=== PATIENT | male | born 1980 | race African-American/Black ===

== ENCOUNTER → 2018-02-25 | Outpatient (CLI) | payer BC ==
[2018-02-25 15:31] LABS: BILIRUBIN,URINE NEGATIVE (NEG); CLARITY,URINE CLEAR; COLOR,URINE YELLOW; NITRITE,URINE NEGATIVE (NEG); PROTEIN,URINE NEGATIVE (NEG-TRACE)
[2018-02-25 15:43] LABS: BACTERIA,URINE 0 /HPF (0-FEW); RBC,URINE 0 /HPF (0-2); WBC,URINE OCC /HPF (0-4)
--- NOTE | 2018-02-25 16:08 | RAD ---
Scrotal ultrasound, 02/25/2018: HISTORY: Scrotal swelling The right testicle measures 4.3 x 2.0 x 2.3 cm while the left testicle measures 3.8 x 2.5 x 2.7 cm. There is blood flow in both testicles. No testicular mass is seen. The epididymides appear prominent and mildly heterogeneous, more so on the left.. No increased vascularity is seen. There is a small left hydrocele. There is nonspecific scrotal wall/skin thickening, more so on the left. IMPRESSION: 1. No testicular abnormality is detected. 2. Epididymal prominence, more so on the left, raising the possibility of chronic epididymitis. 3. Small left hydrocele. Electronically signed by: Carlos A Mueller MD (02/25/2018 4:04 PM) [facility]
== END | disposition home or self-care (01) ==
LOC: US 14:18
PROVIDERS: ATTEND Family Medicine
DX: N43.3 Hydrocele, unspecified (principal); R35.0 Frequency of micturition
CPT/HCPCS: 76870; 81001; 87491; 87591